=== PATIENT | female | born 1930 | race Caucasian/White ===

== ENCOUNTER → 2016-11-22 | Outpatient (CLI) | payer MEDICARE ==
--- NOTE | 2016-11-23 11:15 | PCVCIMAG ---
APPROVED REPORT Study performed: 11/22/2016 15:14:26 EXAM: Comprehensive 2D, Doppler, and color-flow Echocardiogram Patient Location: Echo lab Other Information Study Quality: Good Indications Cardiomyopathy 2D Dimensions LVEF(%): 30.38 (>50%) IVSd: 10.08 (7-11mm) LVDd: 54.83 mm PWd: 9.70 (7-11mm) LVDs: 46.91 (25-40mm) Left Atrium: 29.52 (27-40mm) LV Single Plane 4CH: 43.89 % LV Single Plane 2CH: 27.49 %Nunez's LVEF: 35.69 % Biplane EF: 33.0 % Volumes Left Atrial Volume (Systole) Single Plane 4CH: 59.25 mLSingle Plane 2CH: 78.55 mL LA ESV Index: 42.00 mL/m2 Left Ventricle Left ventricle is dilated. There is normal LV segmental wall motion. There is normal left ventricular wall thickness. Left ventricular systolic function is globally moderate to severely decreased. LVEF is 30-35%. The left ventricular diastolic function is normal. Right Ventricle The right ventricle is normal size. The right ventricular systolic function is normal. Atria The left atrium size is normal. The right atrium size is normal. Aortic Valve The aortic valve is normal in structure. No aortic regurgitation is present. There is no aortic valvular stenosis. Mitral Valve The mitral valve is normal in structure. Trace to mild mitral regurgitation. No evidence of mitral valve stenosis. Tricuspid Valve The tricuspid valve is normal in structure. There is no tricuspid valve regurgitation noted. Pulmonic Valve The pulmonary valve is normal in structure. There is no pulmonic valvular regurgitation. Great Vessels The aortic root is normal in size. IVC is normal in size and collapses with >50% inspiration Pericardium There is no pericardial effusion. <Conclusion> Left ventricle is dilated. Left ventricular systolic function is globally moderate to severely decreased. LVEF is 30-35%. The right ventricle is normal size. The aortic valve is normal in structure. The mitral valve is normal in structure. Trace to mild mitral regurgitation. The tricuspid valve is normal in structure. The pulmonary valve is normal in structure.
== END | disposition home or self-care (01) ==
LOC: PCVCIMAG 14:04
PROVIDERS: ATTEND Internal Medicine
DX: I34.0 Nonrheumatic mitral (valve) insufficiency (principal); I10 Essential (primary) hypertension; E03.9 Hypothyroidism, unspecified; E78.5 Hyperlipidemia, unspecified; Z79.82 Long term (current) use of aspirin
CPT/HCPCS: 93308

== ENCOUNTER → 2017-01-14 | Outpatient (CLI) | payer MEDICARE | END | disposition home or self-care (01) | LOC: PCVCCLINIC 10:25 | PROVIDERS: ATTEND Internal Medicine | DX: I42.9 Cardiomyopathy, unspecified (principal); I11.0 Hypertensive heart disease with heart failure; I50.20 Unspecified systolic (congestive) heart failure; R94.31 Abnormal electrocardiogram [ECG] [EKG]; Z79.82 Long term (current) use of aspirin; Z79.899 Other long term (current) drug therapy; Z87.891 Personal history of nicotine dependence | CPT/HCPCS: 93005; G0463 ==

== ENCOUNTER → 2017-03-18 | Outpatient (CLI) | payer MEDICARE | END | disposition home or self-care (01) | LOC: PCVCCLINIC 09:17 | PROVIDERS: ATTEND Internal Medicine | DX: I11.0 Hypertensive heart disease with heart failure (principal); I50.9 Heart failure, unspecified; I42.0 Dilated cardiomyopathy; E78.5 Hyperlipidemia, unspecified; R94.31 Abnormal electrocardiogram [ECG] [EKG]; Z79.82 Long term (current) use of aspirin; Z87.891 Personal history of nicotine dependence | CPT/HCPCS: 80061; 93005; G0463 ==

== ENCOUNTER → 2017-05-01 | Outpatient (CLI) | payer MEDICARE ==
--- NOTE | 2017-05-03 10:06 | PCVCIMAG ---
APPROVED REPORT Study performed: 05/01/2017 10:54:25 EXAM: Comprehensive 2D, Doppler, and color-flow Echocardiogram Patient Location: Echo lab Room #: [id number]: routine BSA: 1.65 HR: 66 bpmBP: 142/84 mmHg Rhythm: NSR Other Information Study Quality: Good Risk Factors: Cardiac Risk Factors: HTN, Hyperlipidemia Indications Congestive Heart Failure Cardiomyopathy Hypertension/HDD 2D Dimensions LVEF(%): 46.91 (>50%) IVSd: 10.54 (7-11mm)LVOT Diam: 19.26 (18-24mm) LVDd: 56.20 mm PWd: 7.89 (7-11mm)Ascending Ao: 29.94 (22-36mm) LVDs: 42.82 (25-40mm) Left Atrium: 34.40 (27-40mm) Aortic Root: 20.39 mm LV Single Plane 4CH: 43.57 % LV Single Plane 2CH: 30.69 %Nunez's LVEF: 37.13 % Biplane EF: 36.1 % Volumes Left Atrial Volume (Systole) Single Plane 4CH: 91.51 mLSingle Plane 2CH: 70.44 mL Biplane LA Volume: 89.00 mLLA ESV Index: 53.00 mL/m2 Aortic Valve AoV Peak Jason.: 1.40 m/s AO Peak Gr.: 10.20 mmHgLVOT Max P.79 mmHg LVOT Max V: 0.66 m/s LETA Vmax: 1.38 cm2 Mitral Valve E/A Ratio: 1.2 MV Decel. Time: 181.71 ms MV E Max Jason.: 1.10 m/s MV A Jason.: 0.90 m/s MV PHT: 52.70 ms IVRT: 161.48 ms TDI E/Lateral E': 15.71E/Medial E': 22.00 Medial E' Jason.: 0.05 m/s Lateral E' Jason.: 0.07 m/s Pulmonary Valve PV Peak Jason.: 0.66 m/sPV Peak Gr.: 1.72 mmHg Tricuspid Valve TR Peak Jason.: 2.89 m/s TR Peak Gr.: 33.42 mmHg TV Vmax: 0.39 m/sPA Pressure: 40.00 mmHg Left Ventricle The left ventricle is normal size. There is global hypokinesis of the left ventricle. There is normal left ventricular wall thickness. Left ventricular systolic function is normal. The left ventricular ejection fraction is within the normal range. LVEF is 35%. Findings suggest the left atrial pressure is elevated. Right Ventricle The right ventricle is normal size. The right ventricular systolic function is normal. Atria Left atrium is severely dilated. Right atrium is moderately dilated. Aortic Valve The aortic valve is normal in structure. No aortic regurgitation is present. There is no aortic valvular stenosis. Mitral Valve There is mild mitral annular calcification. The mitral valve is normal in structure and function. Mild mitral regurgitation. No evidence of mitral valve stenosis. Tricuspid Valve The tricuspid valve is normal in structure. Mild tricuspid regurgitation with a PA pressure of 40 mmHg Borderline Moderate pulmonary hypertension.. Pulmonic Valve The pulmonary valve is normal in structure. There is no pulmonic valvular regurgitation. Great Vessels The aortic root is normal in size. Aortic arch is not well visualized. IVC is normal in size and collapses with >50% inspiration Pericardium There is no pericardial effusion. There is no pleural effusion. <Conclusion> The left ventricle is normal size. Left ventricular systolic function isdecreased The left ventricular ejection fraction is moderately decreased . There is global hypokinesis of the left ventricle. LVEF is 35%. Left atrium is severely dilated. Right atrium is moderately dilated. The aortic valve is normal in structure. There is mild mitral annular calcification. The mitral valve is normal in structure and function. Mild mitral regurgitation. The tricuspid valve is normal in structure. Mild tricuspid regurgitation with a PA pressure of 40 mmHg Borderline Moderate pulmonary hypertension.. The pulmonary valve is normal in structure. There is no pulmonic valvular regurgitation. There is no pericardial effusion.
== END | disposition home or self-care (01) ==
LOC: PCVCIMAG 10:20
PROVIDERS: ATTEND Internal Medicine
DX: I11.0 Hypertensive heart disease with heart failure (principal); I50.9 Heart failure, unspecified; I42.9 Cardiomyopathy, unspecified; E78.5 Hyperlipidemia, unspecified; I08.1 Rheumatic disorders of both mitral and tricuspid valves
CPT/HCPCS: 93306

== ENCOUNTER → 2017-06-11 | Outpatient (CLI) | payer MEDICARE | END | disposition home or self-care (01) | LOC: PCVCCLINIC 10:03 | DX: I11.0 Hypertensive heart disease with heart failure (principal); I50.20 Unspecified systolic (congestive) heart failure; I25.5 Ischemic cardiomyopathy; Z79.82 Long term (current) use of aspirin; Z79.899 Other long term (current) drug therapy; Z87.891 Personal history of nicotine dependence | CPT/HCPCS: 93005; G0463 ==

== ENCOUNTER → 2017-12-19 | Outpatient (CLI) | payer MEDICARE | END | disposition home or self-care (01) | LOC: PCVCCLINIC 13:40 | PROVIDERS: ATTEND Internal Medicine | DX: I11.0 Hypertensive heart disease with heart failure (principal); I50.20 Unspecified systolic (congestive) heart failure; I25.5 Ischemic cardiomyopathy; E78.5 Hyperlipidemia, unspecified; Z79.82 Long term (current) use of aspirin | CPT/HCPCS: 93005; G0463 ==

== ENCOUNTER → 2018-07-07 | Outpatient (CLI) | payer MEDICARE | END | disposition home or self-care (01) | LOC: PCVCCLINIC 14:43 | PROVIDERS: ATTEND Internal Medicine | DX: I11.0 Hypertensive heart disease with heart failure (principal); I50.20 Unspecified systolic (congestive) heart failure; I25.5 Ischemic cardiomyopathy; I10 Essential (primary) hypertension; I38 Endocarditis, valve unspecified; K21.9 Gastro-esophageal reflux disease without esophagitis; E03.9 Hypothyroidism, unspecified; Z79.82 Long term (current) use of aspirin; Z87.891 Personal history of nicotine dependence | CPT/HCPCS: 93005; G0463 ==

== ENCOUNTER → 2019-01-12 | Outpatient (CLI) | payer MEDICARE | END | disposition home or self-care (01) | LOC: PCVCCLINIC 13:12 | PROVIDERS: ATTEND Internal Medicine | DX: I25.5 Ischemic cardiomyopathy (principal); I11.0 Hypertensive heart disease with heart failure; I50.20 Unspecified systolic (congestive) heart failure; I38 Endocarditis, valve unspecified; E78.5 Hyperlipidemia, unspecified | CPT/HCPCS: 36415; 80061; 93005; G0463 ==